=== PATIENT | female | born 1980 | race Caucasian/White ===

== ENCOUNTER → 2017-09-03 | Outpatient (CLI) | payer OTHER ==
[~2017-09-03] MED LIST: IBUP-1050 PO
--- NOTE | 2017-09-03 13:24 | DIAGNOSTIC IMAGING REPORT ---
L FOOT MIN 3 VIEWS CLINICAL HISTORY: LEFT FOOT PAIN pain COMPARISON: None. DISCUSSION: Minimal degenerative change first metatarsophalangeal joint. No acute bony abnormality. Alignment is anatomic. IMPRESSION: Minimal degenerative change first metatarsophalangeal joint. No acute process. The above report was generated using voice recognition software. It may contain grammatical, syntax or spelling errors. Electronically signed by: Moe Núñez M.D. 09/03/2017 1:22 PM Dictated Date/Time: 09/03/2017 1:21 PM
== END | disposition home or self-care (01) ==
LOC: C.RDSM 13:15
PROVIDERS: ATTEND Family Medicine
DX: M79.672 Pain in left foot (principal); M89.8X7 Other specified disorders of bone, ankle and foot

== ENCOUNTER 2017-12-17 17:08 | Emergency (ER) | payer OTHER ==
[~2017-12-17] VITALS: Ht 167.6 cm; Wt 99.3 kg
[2017-12-17 17:28] VITALS: Ht 167.6 cm; Wt 99.3 kg
[2017-12-17] MEDS ORDERED: TRAMADOL HCL 50 MG TAB PO STA (17:47)
[2017-12-17] MEDS ORDERED: TRAM-453 PO (17:49)
[2017-12-17] MEDS ORDERED: PENI-82 PO (17:49)
--- NOTE | 2017-12-17 17:50 | EMERGENCY ROOM VISIT NOTE ---
ED Visit Note First contact with patient: 17:35 CHIEF COMPLAINT: Toothache HISTORY OF PRESENT ILLNESS: This 37-year-old female patient presented to the emergency department, ambulatory, with her , complaining of a progressive toothache for past 2 days. The patient believes it is coming from her remaining right lower molar. The pain is now steady and severe and radiates to the face. The patient does have a dentist appointment set up for Thursday of next week. They rate their pain a 8.5/10 and the ibuprofen they have been taking has not relieved the pain. Denies facial swelling or fever. The patient denies any discharge from the mouth. REVIEW OF SYSTEMS: A 6 system review of systems was completed with positives and pertinent negatives listed in the HPI. ALLERGIES: None MEDICATIONS: None PMH: None SOCIAL HISTORY: The patient lives locally with family. She is a current smoker, but is trying to quit. She denies drug or alcohol use. PHYSICAL EXAM: Vitals are noted on the nurse's note and reviewed by myself. Vital signs stable. Temperature 37.0C orally. GENERAL: This is a 37-year-old white female, in no acute distress, nondiaphoretic, well-developed well- nourished. Mouth: The #30 tooth is very carious and the gum is swollen and tender around it, without any discharge or signs of an abscess. The remainder of the pharynx and tonsils are without erythema, edema, or exudate. The airway is patent. There is no facial swelling, cervical or submandibular lymphadenopathy. The patient appears uncomfortable and in pain. The patient has overall poor dental hygiene. EARS: External auditory canals clear, tympanic membranes pearly bang without erythema or effusion bilaterally. ED COURSE: The patient was seen and evaluated as above. Her symptoms are consistent with odontalgia/early abscess. The patient will be started on antibiotics and will be given a prescription for 1 days worth of narcotic pain medication. She was advised to use OTC medications as well. The patient was agreeable to this assessment and plan. Discharge instructions reviewed, the patient was discharged home in good condition. I attest that I have personally reviewed the patient's current medication list. Patient was found to have normal blood pressure on screening and does not require follow-up. The patient was interviewed in the [employer] system with no red flags noted. Differential diagnosis includes odontalgia, abscess, cellulitis, otitis media, otitis externa, sinusitis, upper respiratory infection, malignancy, and others DIAGNOSIS: Odontalgia Problem List Medical Problems: (1) History of - tubal ligation Status: Resolved Current/Historical Medications Scheduled Penicillin V Potassium (Veetids), 500 MG PO QID Scheduled PRN Ibuprofen (Advil), 1,200 MG PO BID PRN Tramadol Hcl (Ultram), 1 TAB PO Q6H PRN for Pain Allergies Coded Allergies: No Known Allergies (Verified Allergy, Unknown, 08/23/07) Vital Signs Date Time Temp Pulse Resp B/P (MAP) Pulse Ox O2 Delivery O2 Flow Rate FiO2 12/17/17 18:03 37.0 71 20 143/93 98 12/17/17 17:28 37.0 71 20 143/93 98 Room Air Medications Administered Medications (Trade) Dose Ordered Sig/Maria Del Rosario Route Start Time Stop Time Status Last Admin Dose Admin Tramadol HCl (Ultram Tab) 50 mg NOW STAT PO 12/17/17 17:47 12/17/17 17:48 DC 12/17/17 17:47 50 MG Departure Information Impression Primary Impression: Odontalgia Dispostion Home / Self-Care Condition GOOD Prescriptions Tramadol Hcl (ULTRAM) 50 Mg Tab 1 TAB PO Q6H Y for Pain, #6 TAB Prov: Park Sneed PA-C 12/17/17 Penicillin V Potassium (Veetids) 500 Mg Tab 500 MG PO QID for 10 Days, #40 TAB Prov: Park Sneed PA-C 12/17/17 Referrals No Doctor, Assigned (PCP) Patient Instructions ED Abscess Dental, [facility] Additional Instructions You have been treated in the Emergency Department for Dental Pain. You have received pain medicine in the emergency department which impairs your ability to operate a vehicle. It is illegal for you to drive after receiving these medicines. You have been prescribed tramadol to be used for pain control. This is a narcotic medication. You cannot drive or consume alcohol while on this medicine. This medicine should only be used for pain that cannot be controlled with [id number] pain medicines. You were prescribed Pen-Vee K to be taken 4 times daily. This is an antibiotic. All antibiotics have the potential to cause diarrhea. Stop this medication and contact a medical provider if you were to develop any significant adverse side effects including: wheezing, shortness of breath, passing out, vomiting, or a diffuse rash. Always take antibiotics as directed and COMPLETE the ENTIRE course regardless of the improvement of your symptoms. For pain control, you can use the following cnil-ejv-reshfyr medicines (if >12 yo): Ibuprofen(Motrin, Advil) may be used for fever or pain. Use 600mg every six hours as needed. Take with food. Avoid using more than 2400mg in a 24 hour period. Do not use 2400mg per day for more than three consecutive days without physician direction. Prolonged inappropriate use can lead to stomach upset or ulcers. (AND/OR) Acetaminophen(Tylenol) may be used for fever or pain. Use 1000mg every six hours as needed. Avoid using more than 3000mg in a 24 hour period. Refrain from smoking cigarettes or using chewing tobacco until you have been evaluated by your dentist. Keeping beverages lukewarm and consuming soft foods can decrease your pain. Warm compresses over the affected area may offer some relief. You MUST seek evaluation of your dental pain by a dentist following your visit to the Emergency Department. The Emergency Department is not capable of treating dental issues long-term. You should call your dentist as soon as possible to make an appointment for evaluation of your dental pain. Return to the emergency department if you develop the following symptoms despite treatment course outlined above: fever, intractable pain, increased redness, swelling, or purulent discharge.
[2017-12-17 18:03] VITALS: BP 143/93; PULSE 71; TEMP 37; O2SAT 98
== END 2017-12-17 18:04 | disposition home or self-care (01) ==
LOC: C.EDB 17:10 → C.EDD 18:04
DX: K08.89 Other specified disorders of teeth and supporting structures (principal); F17.210 Nicotine dependence, cigarettes, uncomplicated